=== PATIENT | male | born 1960 | race Caucasian/White ===

== ENCOUNTER 2025-02-13 09:27 | Outpatient (AMB) | payer OTHER, SELFPAY ==
--- NOTE | 2025-02-13 09:30 | A.OFFVIS_ITS ---
Vital Signs 02/13/25 09:35 Height 6 ft Weight 274 lb BMI 37.2 BP 108/60 Blood Pressure Location Lt brachial Position Sitting Pulse 63 Pulse Source Pulse Oximeter Pulse Oximetry (%) 95 Oxygen Delivery Method Room Air Intake Visit Reasons: Obstructive sleep apnea Allergies No Known Allergies Allergy (Verified 02/13/25 09:38) HPI HPI Obstructive sleep apnea: Details: Abdullahi is a pleasant 64 year old, former smoker, quit 15+ years ago, with underlying SEFERINO on CPAP, HTN, HLD, and DMII. He was referred by PCP for management of SEFERINO. He was diagnosed with severe sleep apnea 20 years ago and has been using a CPAP machine since then. The patient reports that his original CPAP machine was more effective than the current ResMed 10, which he has been using for four to five years. The patient has experienced significant weight loss of 43 pounds since October, attributed to the use of Zepbound. He reports persistent daytime tiredness despite using the CPAP machine, which suggests a possible need for a repeat sleep study due to the weight loss. The patient has a history of pulmonary nodules, which were identified after a hospitalization several years ago. The nodules were followed up with repeat CT scans by Dr. Weaver, and the patient was advised to continue monitoring them. The last CT scan was performed at [facility], and the patient has a history of smoking, having quit more than 15 years ago. The patient reports symptoms of allergic rhinitis, including persistent spring allergies managed with loratadine. He has no history of asthma and denies any significant respiratory symptoms such as wheezing or shortness of breath. 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 [facility] Social History (Updated 02/13/25 @ 09:38 by Lani Tariq [facility]) Patient Tobacco Use Status: Former Tobacco user Review of Systems Const Denies chills, Denies excessive sweating, Denies fever(s), Denies headache(s) and Denies night sweats Eyes Denies dry eyes, Denies irritation and Denies itchy eyes ENT Reports Normal hearing present, Denies headache(s), Denies nasal congestion, Denies nasal discharge, Denies post nasal drip and Denies sore throat Card Denies chest pain, Denies chest pain at rest, Denies chest pain with activity, Denies claudication, Denies leg edema, Denies dyspnea, Denies dyspnea on exertion, Denies orthopnea and Denies paroxysmal nocturnal dyspnea Resp Denies chest congestion, Denies cough, Denies excessive phlegm production, Denies pain on inspiration, Denies pain with cough, Denies dyspnea, Denies dyspnea on exertion, Denies stridor and Denies wheezing Musc Denies myalgias Neuro Reports Normal hearing present and Denies headache(s) Endo Denies excessive sweating Issac/Lymph Denies lymphadenopathy Aller/Immun Denies itchy eyes, Denies seasonal rhinorrhea and Denies wheezing Physical Exam Vital Signs: Last Vital Signs Pulse 63 02/13/25 09:35 BP 108/60 02/13/25 09:35 Pulse Ox 95 02/13/25 09:35 Oxygen Delivery Method Room Air 02/13/25 09:35 BMI result Body Mass Index 37.2 Const General: cooperative, healthy appearing, comfortable, no acute distress, well developed and alert Nutritional Appearance: obese Orientation/consciousness: patient oriented x3 Limitations: no limitations HEENT Head: Yes normal to inspection, Yes normocephalic and Yes atraumatic Ears: hearing grossly normal bilaterally and external ears normal Eyes General: appearance normal, both eyes and all related structures Eyelids: Yes eyelids normal Sclerae: sclerae normal EOM: EOMs intact bilaterally Neck Neck: Yes normal visual inspection and Yes no lymphadenopathy Lymphatic: no lymphadenopathy noted Chest Chest palpation & inspection: normal inspection of the chest Resp Effort & Inspection: normal respiratory effort, able to speak in complete sentences, no audible wheezes, no cough, no stridor, not tachypneic, no tripod positioning and no use of accessory muscles Auscultation: clear to auscultation bilaterally Cardio Jugular venous distension: no JVD Rate: regular rate Rhythm: regular rhythm Skin Other: warm, dry General skin exam: no rashes or lesions noted Neuro General: patient oriented x3 Cranial nerves: Yes Normal hearing present Cognition (Neuro): normal cognition Gait exam (Neuro): Normal gait present Extrem General: Yes normal to inspection, Yes capillary refill normal, Yes no clubbing, cyanosis or edema and Yes no pedal edema Psych Appearance: grossly normal and well kempt Speech and movement: Normal speech and movement present and Clear speech present Affect: normal affect Attitude: cooperative Thought process: Normal thought process present Thought content: Normal thought content present Insight: Good insight present (Psych) Judgement: Good judgement present (Psych) Assessment & Plan Assessment & Plan (1) Obstructive sleep apnea: Code(s): G47.33 - Obstructive sleep apnea (adult) (pediatric) Category: Medical (2) Morbid obesity: Code(s): E66.01 - Morbid (severe) obesity due to excess calories Category: Medical (3) Pulmonary nodule: Code(s): R91.1 - Solitary pulmonary nodule Category: Medical (4) Daytime somnolence: Code(s): R40.0 - Somnolence Category: Medical Plan We discussed scheduling a repeat sleep study to reassess the severity of the patient's obstructive sleep apnea, given the significant weight loss and persistent daytime tiredness. The sleep study is recommended to be conducted in a lab setting to accurately determine the necessary CPAP pressures. He is requesting this to be performed in the Fall, as he is hopeful he will continue to lose weight. Additionally, the patient will obtain a repeat CT scan to monitor the pulmonary nodules, ensuring stability and ruling out any changes in size or density. [facility] The patient is advised to continue using loratadine for allergic rhinitis and consider switching to a more potent antihistamine if symptoms persist. All questions were answered and patient is in agreement of plan. Follow-up appointments are planned after the completion of the sleep study and CT scan to review results and adjust management as necessary. Coding Level of Care Code New Pt Level 4 (29207) Diagnoses Obstructive sleep apnea G47.33 Morbid obesity E66.01 Pulmonary nodule R91.1 Daytime somnolence R40.0
[2025-02-13 09:35] VITALS: BP 108/60; PULSE 63; O2SAT 95; BMI 37.2
--- OUTSIDE RECORDS SUMMARY | 2025-02-13 10:05 | XMS_ITS | Clinical Summary ---
Author Organization [facility] Address [address] [place] [address] Care Team Providers Care Healthcare Business Analyst Name Role Phone Pcp, No Primary Care Provider [phone] Social History Tobacco Use Types Packs/Day Years Used Date Smoking Tobacco: Never Assessed Sex and Gender Information Value Date Recorded Sex Assigned at Not on file Legal Sex Male 12:52 PM EDT Gender Identity Not on file Sexual Orientation Not on file Plan of Treatment Health Maintenance Due Date Last Done Comments Depression: Screening Annual ly using PHQ-2/9 in Adults 18 yrs or above (or HM Modifier)([facility]) 1979 Hepatitis C Virus Infection in Adolescents and Adults: Screening (or Modifier) ([facility]) 1979 SDIL Screening Reminder: Laura coe for all adults ([facility]) 1979 Tobacco Smoking Cessation: i n Adults excluding Women: Behavioral and Pharmacotherapy Interventions ([facility]) 1979 Colorectal Cancer: FLEXIBLE SIGMOIDOSCOPY Screening every 5 yrs 2006 Colorectal Cancer: Fecal Immunochemical Test (FIT) Annually [facility] 2006 Colorectal Cancer: High-sens itivity gFOBT Screening Annually [facility] 2006 Colorectal Cancer: Stool Col oguard Screening every 3 yrs 2006 Colorectal Cancer:CT Colonog bayron Screening every 5 yrs 2006 Pneumococcal Vaccination Scr eening: Patients 50+ yrs of age ([facility]) (1 of 1 - PCV) 2011 Zoster/Shingles Vaccine Seri es Screening: Adults aged 18+ yrs (or HM Modifiers)([facility]) (1 of 2) 2011 COVID-19 Vaccine Screening: Initial Series and Booster Status ([facility]) (4 - 2024-25 season) 2024 06/06/2021, 11/11/2020, 10/21/2020 Flu Vaccination: Yearly for ages 18mos through 64 years (or Modifier)([facility]) 03/16/2025 05/09/2024, 07/02/2022, 07/02/2022, Additional history exists DTaP/Tdap/Td Vaccines ([facility]) (2 - Td or Tdap) 06/14/2025 06/14/2015 Colorectal Cancer Screening 45 -75 Yrs (or HM Modifier) 01/04/2034 Colorectal Cancer: COLONOSCO PY Screening every 10 yrs (or Modifier) 01/04/2034 01/05/2024, 01/05/2024 RSV Vaccines (1 - 1-dose 75+ series) 2036 [employer] Not on file Insurance [employer] Member Subscriber Plan / Payer (Ef fective 2021-Present) Name:Abdullahi Glez Member ID:[id number] Relation to Subscriber:Self Name:Abdullahi Glez Subscriber ID:[id number] Payer ID:Not on file Group ID:Not on file Type:Not on file Address: [facility] [id number] [place] [id number] Care Teams Healthcare Business Analyst Relationship Specialty Start Date End Date Pcp, Brooklynn PCP - General Family Medicine 09/10/21
--- OUTSIDE RECORDS SUMMARY | 2025-02-13 10:05 | XMS_ITS | Clinical Summary ---
Author Organization [address] Address [address] [place] [phone] Phone Care Team Providers Care Programmable Logic Controller Assembler Name Role Phone Donnie Yanez MD Primary Care Provider [phone] Allergies Active Allergy Reactions Criticality Noted Date Comments Sulfamethoxazole-Trimethoprim 2019 Medications aspirin 81 mg EC tablet Take 1 tablet (81 mg total) by mouth 1 (one) time each day. Active OneTouch Ultra Test test strip 1 each by Other route 1 (one) time each day. 07/24/20 23 Active chlorhexidine (PERIDEX) 0.12 % solution RINSE BY MOUTH WITH 15ML TWICE A DAY X1 WEEK. RINSE AND SPIT OUT AFTER USE. DO NOT SWALLOW 05/18/20 24 Active cholecalciferol (VITAMIN D-3) 25 mcg (1,000 unit) tablet Take 1 tablet (1,000 Units total) by mouth 1 (one) time each day. Active FreeStyle Barbra 2 [place] misc Inject into the skin 3 (three) times a day. USE TO CHECK BLOOD SUGAR THREE TIMES DAILY 07/12/20 23 Active furosemide (LASIX) 40 mg tablet Take 40 mg by mouth once daily. 90 each 3 09/18/19 25 Active tamsulosin (FLOMAX) 0.4 mg 24 hr capsule TAKE 1 CAPSULE BY MOUTH EVERY DAY AT THE SAME TIME EACH DAY 30 MINUTES AFTER THE SAME MEAL 90 capsule 1 11/15/19 25 Active FreeStyle Barbra 2 Sensor kit USE TO CHECK BLOOD GLUCOSE LEVELS 3 TIMES DAILY 2 each 8 12/02/19 Active atorvastatin (LIPITOR) 20 mg tablet TAKE 1 TABLET BY MOUTH EVERY DAY 90 tablet 12/02/19 Active KLOR-CON M10 10 mEq CR tablet TAKE 1 TABLET BY MOUTH 1 TIME EACH DAY. 90 tablet 12/02/19 Active buPROPion SR (WELLBUTRIN SR) 150 mg 12 hr tablet TAKE 1 TABLET BY MOUTH EVERY DAY 90 tablet 12/02/19 25 Active allopurinoL (ZYLOPRIM) 300 mg tablet TAKE 1 TABLET BY MOUTH EVERY DAY 90 tablet 12/02/19 25 Active losartan (COZAAR) 50 mg tablet TAKE 1 TABLET BY MOUTH EVERY DAY IN ADDITION TO 25MG FOR TOTAL DOSE OF 75MG DAILY 90 tablet 12/02/19 25 Active losartan (COZAAR) 25 mg tablet TAKE 1 TABLET BY MOUTH DAILY. IN ADDITION TO THE 50 MG FOR A TOTAL OF 75 MG DAILY 90 tablet 12/02/19 25 Active colchicine (COLCRYS) 0.6 mg tablet TAKE 1 TABLET BY MOUTH EVERY DAY 90 tablet 12/13/19 Active metoprolol tartrate (LOPRESSOR) 50 mg tablet Take 1 tablet (50 mg total) by mouth 2 (two) times a day. 180 each 12/20/19 25 026 Active tirzepatide, weight loss, 7.5 mg/0.5 mL solutionIndicat ions:obstructiv e sleep apnea syndrome,type 2 diabetes mellitus,weight loss management for obese patient (bmi >= 30) Inject 7.5 mg under the skin every 7 (seven) days. 6 mL 02/08/20 25 Active tirzepatide, weight loss, (Zepbound) 5 mg/0.5 mL solutionIndicat ions:Severe obesity (BMI 35.0-39.9) with comorbidity (CMS/HCC V24, CMS/FORMERLY [facility] V28),Type 2 diabetes mellitus without complication, without long-term current use of insulin (CMS/HCC V24, [facility] V28) Inject 5 mg under the skin every 7 (seven) days. 6 mL 3 12/20/19 25 025 Discontinued Active Problems Problem Noted Date Diagnosed Date Depression 07/14/2021 Prostatism 07/14/2021 CAD (coronary artery disease) 05/01/2020 Assessment & Plan (09/18/2024 10:47 AM EST): No CP. No anginal symptoms. Orders: Basic metabolic panel; Future B-type natriuretic peptide; Future Hepatic function panel; Future dulaglutide (TRULICITY) 0.75 mg/0.5 mL pen injector injection; Inject 0.5 mL (0.75 mg total) under the skin 1 (one) time per week. DM (diabetes mellitus), type 2 (CMS/[facility] V24, CMS /HCC V28) 05/01/2020 Assessment & Plan (09/21/2024 5:07 PM EST): Diabetes control recently worsened. Recent hemoglobin A1c of 6.5%. Will initiate dulaglutide which may be also helpful for weight loss. While other GLP-1's have been shown to be more beneficial, when trying to prescribe alternatives, there was large predicted co-pays, so we have the Trulicity. Orders: Basic metabolic panel; Future B-type natriuretic peptide; Future Hepatic function panel; Future dulaglutide (TRULICITY) 0.75 mg/0.5 mL pen injector injection; Inject 0.5 mL (0.75 mg total) under the skin 1 (one) time per week. Gout 05/01/2020 Hyperlipidemia 05/01/2020 Hypertension 05/01/2020 Assessment & Plan (09/18/2024 10:47 AM EST): BP well controlled. I am adjusting his lasix due to peripheral edema, otherwise no change. Orders: Basic metabolic panel; Future B-type natriuretic peptide; Future Hepatic function panel; Future dulaglutide (TRULICITY) 0.75 mg/0.5 mL pen injector injection; Inject 0.5 mL (0.75 mg total) under the skin 1 (one) time per week. SEFERINO (obstructive sleep apnea) 05/01/2020 Overview (07/03/2024): CPAP Assessment & Plan (09/18/2024 10:47 AM EST): Continues with CPAP. Orders: Basic metabolic panel; Future B-type natriuretic peptide; Future Hepatic function panel; Future dulaglutide (TRULICITY) 0.75 mg/0.5 mL pen injector injection; Inject 0.5 mL (0.75 mg total) under the skin 1 (one) time per week. Adenomatous polyp of ascending colon 01/25/2018 Severe obesity (BMI 35.0-39. 9) with comorbidity ([facility] V24, [facility] V28) 01/25/2018 Encounters Date Type Department Care Team Description 12/25/2024 Telephone Adult Medicine [address] [phone] Donnie Yanez MD Appointment 12/19/2024 9:30 AM EDT Office Visit Adult Medicine [address] [phone] Casimiro Song PA SEFERINO (obstructive sleep apnea) (Primary Dx); Leg swelling; Severe obesity (BMI 35.0-39.9) with comorbidity ([facility] V24, [facility] V28); Type 2 diabetes mellitus without complication, without long-term current use of insulin ([facility] V24, [facility] V28) from Last 3 Months Immunizations Name Administration Dates Next Due Influenza Quadravalent, MDCK , 0.5ml, preservative free (Flucelvax) 6mo and older 07/02/2022,07/14/2021 Influenza trivalent, 0.5mL (Fluad) 65yo and olde r 07/28/2023 Influenza trivalent, 0.5mL, preservative free (Fluarix; FluLaval; Fluzone) ages 6mo and older (Afluria) 3 years and older 05/09/2024,07/12/2019 Moderna (age 6mo & older) Bi valent, COVID-19, 0.5 mL or 0.25 mL dosage 05/25/2022 SARS-COV-2 (COVID-19) Vaccine, Unspecified 07/28 Tdap Tetanus diptheria acell ular pertussis (Boostrix; Adacel) 7yo and older 06/14/2015 Surgical History Surgery Date Site/Laterality Comments HERNIA REPAIR 07/04/2018 PROCEDURE: UT REPAIR FIRST ABDOMINAL WALL HERNIA; COMMENT: multiple incarcerated with mesh COLONOSCOPY 12/10/2015 PROCEDURE: HISTORICAL COLONOSCOPY OTHER SURGICAL HISTORY Right PROCEDURE: UT COLECTOMY PARTIAL W/ANASTOMOSIS; COMMENT: Hemicolectomy- Adenoma & adhesion KNEE SURGERY PROCEDURE: HISTORICAL KNEE SURGERY SHOULDER SURGERY Bilateral PROCEDURE: HISTORICAL SHOULDER SURGERY; COMMENT: Boby APPENDECTOMY PROCEDURE: HISTORICAL APPENDECTOMY ELBOW SURGERY PROCEDURE: HISTORICAL ELBOW SURGERY OTHER SURGICAL HISTORY Right PROCEDURE: HISTORY OTHER; COMMENT: thumb Arthroplasty COLONOSCOPY 11/07/2012 PROCEDURE: HISTORICAL COLONOSCOPY; COMMENT: No report OTHER SURGICAL HISTORY PROCEDURE: HISTORICAL MELANOMA Medical History Medical History Date Comments History of basal cell carcinoma DX:History of basal cell carcinoma; COMMENT: BCC 12/30 neck Hypertension 05/01/2020 DX:Hypertension Gout 05/01/2020 DX:Gout SEFERINO (obstructive sleep apnea) 05/01/2020 DX :SEFERINO (obstructive sleep apnea); COMMENT: CPAP Severe obesity (BMI 35.0-39. 9) with comorbidity (CMS/HCC V24, CMS/HCC V28) 01/25/2018 DX:Severe obesi ty (BMI 35.0- 39.9) with comorbidity ([facility]) CAD (coronary artery disease) 05/01/2020 DX :CAD (coronary artery disease) Hyperlipidemia 05/01/2020 DX:Hyperlipidemi a Prediabetes 05/01/2020 DX:Prediabetes Adenomatous polyp of ascending colon 01/25/2018 DX:Adenomatous polyp of ascending colon DM (diabetes mellitus), type 2 (CMS/HCC V24, CMS/HCC V28) 05/01/2020 DX:DM (diabetes mellitus), t ype 2 (HCC) Family History Medical History Relation Name Comments Diabetes Brother 1 Hypertension Brother 2 Lung cancer Father black lung co al worker, CAD age 40 Dementia Mother Drug abuse Son drug OD Relation Name Status Comments Brother 1 Brother 2 Father Mother Son Social History Tobacco Use Types Packs/Day Years Used Date Smoking Tobacco: Former Smokeless Tobacco: Never Tobacco Cessation:Counseling Given: Not Answered Alcohol Use Standard Drinks/Week Comments Yes 0 (1 standard drink = 0.6 oz pur e alcohol) Sex and Gender Information Value Date Recorded Sex Assigned at Not on file Legal Sex Male 9:48 PM EST Gender Identity Not on file Sexual Orientation Not on file Obstetrics History Last Filed Vital Signs Vital Sign Reading Time Taken Comments Blood Pressure 112/66 12/19/2024 9:26 AM EDT Pulse 66 12/19/2024 9:26 AM EDT Temperature 36.6 C (97.8 F) 12/19/2024 9:26 AM EDT Respiratory Rate 14 12/19/2024 9:26 AM EDT Oxygen Saturation 98% 12/19/2024 9:26 AM EDT Inhaled Oxygen Concentration - - Weight 130 kg (286 lb) 12/19/2024 9:26 AM EDT Height 177.8 cm (5' 10 ) 12/19/2024 9:26 AM EDT Body Mass Index 41.04 12/19/2024 9:26 AM EDT Plan of Treatment Health Maintenance Due Date Last Done Comments Pneumococcal Vaccine: 50+ Years (1 of 2 - PCV) 1980 Pneumococcal Vaccine: Pediatrics (0 to 5 Years) and At-Risk Patients (6 to 64 Years) (1 of 2 - PCV) 1980 Zoster Vaccines (1 of 2) 1980 Depression Screening 09/16/2019 HIV Screening 09/16/2019 Social Influencers of Health Screening 09/16/2019 RSV Immunization Adult Patients (1 - Risk 60-74 years 1-dose series) 2021 COVID-19 Vaccine (2023- season) 2024 07/28/2023, 05/25/2022, 06/06/2021, Additional history exists Diabetes: Annual Urine Albumin-Creatinine Ratio (uACR) 12/02/2024 12/03/2023 Influenza Vaccine (#1) 2025 , 07/28/2023, 07/02/2022, Additional history exists DTaP,Tdap,and Td Vaccines (2 - Td or Tdap) 06/14/2025 06/14/2015 Diabetes: Blood Sugar Control Test (HGBA1C) 06/21/2025 12/19/2024, 08/28/2024, 12/03/2023 Diabetes: Annual Foot Exam 12/19/2025 12/19/2024 Diabetes: Annual GFR (Glomerular Filtration Rate) 12/19/2025 12/19/2024, 09/18/2024, 08/28/2024, Additional history exists Diabetes: Annual Retina Eye Exam 12/19/2025 12/19/2024, 06/08/2024 Hypertension/CHF/CAD Annual BMP Blood Test 12/19/2025 12/19/2024, 09/18/2024, 08/28/2024, Additional history exists Colorectal Cancer Screening: Colonoscopy 01/04/2029 01/05/2024 Cholesterol Screening (Lipid Panel) 12/19/2029 12/19/2024, 08/28/2024, 12/14/2023, Additional history exists Hepatitis C Screening Completed 10/29/2022 HIB Vaccines Aged Out No longer eligi ble based on patient's age to complete this topic HPV Vaccines Aged Out No longer eligi ble based on patient's age to complete this topic Hepatitis A Vaccines Aged Out No long er eligible based on patient's age to complete this topic Hepatitis B Vaccines Aged Out No long er eligible based on patient's age to complete this topic IPV Vaccines Aged Out No longer eligi ble based on patient's age to complete this topic MMR Vaccines Aged Out No longer eligi ble based on patient's age to complete this topic Meningococcal ACWY Vaccine Aged Out N o longer eligible based on patient's age to complete this topic Meningococcal B Vaccine Aged Out No l onger eligible based on patient's age to complete this topic RSV Immunization Patients Under 20 months Aged Out No longer eligible based on patient's age to complete this topic Varicella Vaccines Aged Out No longer eligible based on patient's age to complete this topic Procedures Procedure Name Priority Date/Time Associated Diagnosis Comments VITAMIN B12 Routine 12/19/2024 11:21 AM EDT Elevated MCV FOLATE Routine 12/19/2024 11:21 AM EDT Elevated MCV IRON AND TIBC Routine 12/19/2024 11:21 AM EDT Elevated MCV FERRITIN Routine 12/19/2024 11:21 AM EDT Elevated MCV B-TYPE NATRIURETIC PEPTIDE Routine 12/19/2024 11:21 AM EDT SEFERINO (obstructive sleep apnea) COMPREHENSIVE METABOLIC PANEL Routine 12/19/2024 11:21 AM EDT SEFERINO (obstructive sleep apnea) COMPLETE BLOOD COUNT Routine 12/19/2024 11:21 AM EDT SEFERINO (obstructive sleep apnea) Leg swelling Severe obesity (BMI 35.0-39.9) with comorbidity ([facility] V24, [facility] V28) Type 2 diabetes mellitus without complication, without long-term current use of insulin ([facility] V24, [facility] V28) HEMOGLOBIN A1C Routine 12/19/2024 11:21 AM EDT SEFERINO (obstructive sleep apnea) Leg swelling Severe obesity (BMI 35.0-39.9) with comorbidity ([facility] V24, [facility] V28) Type 2 diabetes mellitus without complication, without long-term current use of insulin ([facility] V24, [facility] V28) LIPID PANEL WITH REFLEX TO DIRECT LDL Routine 12/19/2024 11:21 AM EDT SEFERINO (obstructive sleep apnea) Leg swelling Severe obesity (BMI 35.0-39.9) with comorbidity ([facility] V24, [facility] V28) Type 2 diabetes mellitus without complication, without long-term current use of insulin ([facility] V24, [facility] V28) EXTERNAL DIABETIC RETINA EYE EXAM Routine 12/19/2024 10:10 AM EDT COLONOSCOPY Routine 01/05/2024 URINE ALBUMIN CREATININE RATIO Routine 12/03/2023 HEPATITIS C SCREENING Routine 10/29/2022 from Last 3 Months or Most Recently Relevant to Health Maintenance Results * (ABNORMAL) Lipid panel with reflex to direct LDL (12/19/2024 11:21 AM EDT) Cholesterol 109 0 - 200 mg/dL LAB CHEMISTRY METHOD 12/19/2024 1:19 PM EDT [facility] Triglycerides 219(H) 0 - 150 mg/dL LAB CHEMISTRY METHOD 12/19/2024 1:19 PM EDT [facility] HDL 48 >=40 mg/dL LAB CHEMISTRY METHOD 12/19/2024 1:19 PM EDT [facility] LDL Calculated 17 0 - 100 mg/dL LAB CHEMISTRY METHOD 12/19/2024 1:19 PM EDT [facility] VLDL Cholesterol Keenan 43.8 mg/dL LAB CHEMISTRY METHOD 12/19/2024 1:19 PM EDT [facility] Non HDL Chol. (LDL+VLDL) 61 <145 mg/dL LAB CHEMISTRY METHOD 12/19/2024 1:19 PM EDT [facility] Chol/HDL Ratio 2.3 0.0 - 4.4 LAB CHEMISTRY METHOD 12/19/2024 1:19 PM EDT [facility] Blood Venous blood specimen / Unknown Venipuncture / Unknown 12/19/2024 11:21 AM EDT 12/19/2024 11:21 AM EDT Casimiro SWEET LAB BLOOD ORDERABLES Fin al Result Performing Organization Address [facility] Co de Phone Number [facility] [address] [place] [address], [place] [phone] * Iron and TIBC (12/19/2024 11:21 AM EDT) Iron 89 50 - 160 mcg/dL LAB CHEMISTRY METHOD 12/20/2024 2:17 AM EDT [facility] TIBC 314 250 - 450 mcg/dL LAB CHEMISTRY METHOD 12/20/2024 2:17 AM EDT [facility] Iron Saturation 28 20 - 50 % LAB CHEMISTRY METHOD 12/20/2024 2:17 AM EDT [facility] Blood Venous blood specimen / Unknown Venipuncture / Unknown 12/19/2024 11:21 AM EDT 12/19/2024 11:21 AM EDT us Casimiro SWEET LAB BLOOD ORDERABLES Fin al Result Performing Organization Address City/[facility]/ZIP Co de Phone Number [facility] [address] [place] [address], [place] [phone] * (ABNORMAL) Complete blood count (12/19/2024 11:21 AM EDT) [facility] WBC 7.2 4.8 - 10.8 K/mcL LAB HEM[facility]24 [facility] RBC 4.00(L) 4.50 - 5.50 M/mcL LAB HEM[facility]OLOGY METHOD 12/19[facility]2024 1[facility] Hemoglobin 13.6 13.5 - 17.5 g/dL LAB HEMETOLOGY METHOD 12/19/2024 1:39 PM [facility] Hematocrit 39.9(L) 42.0 - 54.0 % LAB HEMETOLOGY METHOD 12/19/2024 1:39 PM [facility] MCV 100.0(H) 79.0 - 98.0 FL LAB HEMETOLOGY METHOD 12/19/2024 1:39 PM [facility] MCH 34.1(H) 27.0 - 32.0 pcg LAB HEMETOLOGY METHOD 12/19/2024 1:39 PM [facility] MCHC 34.1 32.0 - 37.0 g/dL LAB HEMETOLOGY METHOD 12/19/2024 1:39 PM [facility] RDW 12.6 11.0 - 15.0 % LAB HEMETOLOGY METHOD 12/19/2024 1:39 PM [facility] Platelets 277 130 - 400 K/mcL LAB HEMETOLOGY METHOD 12/19/2024 1:39 PM [facility] MPV 10.3 7.0 - 11.0 FL LAB HEMETOLOGY METHOD 12/19/2024 1:39 [facility] NRBC 0.0 <1.0 % LAB HEMETOLOGY METHOD 12/19/2024 1:39 PM EDT [facility] NRBC Absolute 0.00 <0.10 K/mcL LAB HEMETOLOGY METHOD 12/19/2024 1:39 PM EDT [facility] Blood Venous blood specimen / Unknown Venipuncture / Unknown 12/19/2024 11:21 AM EDT 12/19/2024 11:21 AM EDT Casimiro SWEET LAB BLOOD ORDERABLES Fin al Result Performing Organization Address [facility]/ZIP Co de Phone Number [facility] [address] [place] [address], * B-type natriuretic peptide (12/19/2024 11:21 AM EDT) BNP 14 <=100 pcg/mL LAB CHEMISTRY METHOD 12/19/2024 1:59 PM EDT [facility] Blood Venous blood specimen / Unknown Venipuncture / Unknown 12/19/2024 11:21 AM EDT 12/19/2024 11:21 AM EDT Casimiro SWEET LAB BLOOD ORDERABLES Fin al Result Performing Organization Address City/[facility]/ZIP Co de Phone Number [facility] [address] [place] [address], * Hemoglobin A1c (12/19/2024 11:21 AM EDT) Hemoglobin A1C 5.5 <6.5 % LAB CHEMISTRY METHOD 12/19/2024 3:09 PM EDT [facility] Mean Bld Glu Estim. 111 mg/dL LAB CHEMISTRY METHOD 12/19/2024 3:09 PM EDT [facility] Blood Venous blood specimen / Unknown Venipuncture / Unknown 12/19/2024 11:21 AM EDT 12/19/2024 11:21 AM EDT Casimiro SWEET LAB BLOOD ORDERABLES Fin al Result Performing Organization Address [facility] Co de Phone Number [facility] [address] [place] [address], [place] [phone] * Folate (12/19/2024 11:21 AM EDT) [facility] Folate 7.4 2.8 - 17.0 ng/ml LAB CHEMISTRY METHOD 12/20/2024 2:43 AM EDT [facility] Blood Venous blood specimen / Unknown Venipuncture / Unknown 12/19/2024 11:21 AM EDT 12/19/2024 11:21 AM EDT Casimiro SWEET LAB BLOOD ORDERABLES Fin al Result Performing Organization Address [facility] de Phone Number [facility] [address] [place] [address], [place] [phone] * Ferritin (12/19/2024 11:21 AM EDT) [facility] Ferritin 370 26 - 388 ng/mL LAB CHEMISTRY METHOD 12/20/2024 2:43 AM EDT [facility] Blood Venous blood specimen / Unknown Venipuncture / Unknown 12/19/2024 11:21 AM EDT 12/19/2024 11:21 AM EDT Casimiro SWEET LAB BLOOD ORDERABLES Fin al Result Performing Organization Address [facility] Co de Phone Number [facility] [address] [place] [address], [place] [phone] * (ABNORMAL) Vitamin B12 (12/19/2024 11:21 AM EDT) [facility] Vitamin B-12 1,729(H) 250 - 900 pcg/mL LAB CHEMISTRY METHOD 12/20/2024 2:43 AM EDT [facility] Blood Venous blood specimen / Unknown Venipuncture / Unknown 12/19/2024 11:21 AM EDT 12/19/2024 11:21 AM EDT us Casimiro SWEET LAB BLOOD ORDERABLES Fin al Result [facility] [address] [place] [address], [place] [phone] * (ABNORMAL) Comprehensive metabolic panel (12/19/2024 11:21 AM EDT) Sodium 136 133 - 145 mmol/L LAB CHEMISTRY METHOD 12/19/2024 1:19 PM [facility] Potassium 3.9 3.5 - 5.5 mmol/L LAB CHEMISTRY METHOD 12/19/2024 1:19 PM [facility] Chloride 103 96 - 110 mmol/L LAB CHEMISTRY METHOD 12/19/2024 1:19 PM [facility] CO2 24 21 - 32 mmol/L LAB CHEMISTRY METHOD 12/19/2024 1:19 PM [facility] Anion Gap 9 3 - 11 LAB CHEMISTRY METHOD 12/19/2024 1:19 PM [facility] Glucose 101(H) 70 - 100 mg/dL LAB CHEMISTRY METHOD 12/19/2024 1:19 PM [facility] BUN 22 5 - 25 mg/dL LAB CHEMISTRY METHOD 12/19/2024 1:19 PM [facility] Creatinine 1.11 0.70 - 1.30 mg/dL LAB CHEMISTRY METHOD 12/19/2024 1:19 PM [facility] eGFR 75 >=60 mL/min/1. 73m2 LAB CHEMISTRY METHOD 12/19/2024 1:19 PM [facility] Comment:Calculation based on the Chronic Kidney Disease Epidemiology Collaboration (CKD-EPI) equation refit without adjustment for race. BUN/Creatinine Ratio 19.8 LAB CHEMISTRY METHOD 12/19/2024 1:19 PM [facility] Calcium 8.8 8.5 - 10.5 mg/dL LAB CHEMISTRY METHOD 12/19/2024 1:19 PM [facility] AST (SGOT) 24 10 - 42 unit/L LAB CHEMISTRY METHOD 12/19/2024 1:19 PM [facility] ALT (SGPT) 28 10 - 60 unit/L LAB CHEMISTRY METHOD 12/19/2024 1:19 PM [facility] Alkaline Phosphatase 102 42 - 121 unit/L LAB CHEMISTRY METHOD 12/19/2024 1:19 PM [facility] Total Protein 7.1 6.0 - 8.0 g/dL LAB CHEMISTRY METHOD 12/19/2024 1:19 PM [facility] Albumin 3.8 3.2 - 5.0 g/dL LAB CHEMISTRY METHOD 12/19/2024 1:19 PM [facility] Total Bilirubin 0.5 0.0 - 1.4 mg/dL LAB CHEMISTRY METHOD 12/19/2024 1:19 PM [facility] Blood Venous blood specimen / Unknown Venipuncture / Unknown 12/19/2024 11:21 AM EDT 12/19/2024 11:21 AM EDT us Casimiro SWEET LAB BLOOD ORDERABLES Fin al Result [facility] [address] [place] [address], * External Diabetic Retina Eye Exam Report (12/19/2024 10:10 AM EDT) Anatomical Region Laterality Modality Ultrasound us Casimiro SWEET IMG US PROCEDURES Final Result * Hm Colonoscopy (01/05/2024) [facility] Colonoscopy No interpretation , abstracted Anatomical Region Laterality Modality Other Historical Provider HEALTH MAINTENANCE Final Result * Urine Albumin Creatinine Ratio (12/03/2023) Pathologist [facility] Urine Albumin Creatinine Ratio Abstracted [facility] Provider HEALTH MAINTENANCE Final Result * Hepatitis C Screening (10/29/2022) Pathologist [facility] Hepatitis C Screening Abstracted Historical Provider HEALTH MAINTENANCE Final Result from Last 3 Months or Most Recently Relevant to Health Maintenance Insurance [employer] Care Teams Programmable Logic Controller Assembler Relationship Specialty Start Date End Date Donnie Yanez MD [address] [place] [id number] PCP - General Internal Medicine 07/14/21
== END 2025-02-13 10:18 | disposition home or self-care (01) ==
LOC: HO.HPSW 09:28
PROVIDERS: PCP Internal Medicine; Visit Provider Nurse Practitioner Family
DX: G47.33 Obstructive sleep apnea (adult) (pediatric) (principal); E66.01 Morbid (severe) obesity due to excess calories; R91.1 Solitary pulmonary nodule; R40.0 Somnolence
CPT/HCPCS: 99204

== ENCOUNTER → 2025-07-23 16:17 | Outpatient (REF) | payer OTHER, SELFPAY ==
--- OUTSIDE RECORDS SUMMARY | 2025-07-24 01:47 | XMS_ITS ---
Author Name [facility] Organization Unknown Care Team Organization Name Specialty Phone Email Start Date End Da te [facility] Casimiro Song Primary Care 10/21/202204/03 [facility] Renata Primary Care 06/23/2022 04/03/2024
== END ==
LOC: HO.SL 16:17
PROVIDERS: PCP Internal Medicine; Visit Provider Nurse Practitioner Family
DX: G47.33 Obstructive sleep apnea (adult) (pediatric) (principal); R40.0 Somnolence
CPT/HCPCS: 95806

== ENCOUNTER → 2025-07-24 16:24 | Outpatient (BNV) | payer OTHER, SELFPAY | PROVIDERS: PCP Internal Medicine; Visit Provider Psychiatry & Neurology Neurology | DX: G47.33 Obstructive sleep apnea (adult) (pediatric) (principal) | CPT/HCPCS: 95806 ==

== ENCOUNTER 2025-07-31 09:37 | Outpatient (AMB) | payer OTHER, SELFPAY ==
--- NOTE | 2025-07-31 09:39 | MHC.OFFVIS ---
Vital Signs 07/31/25 09:40 Height 6 ft Weight 269 lb 6 oz BMI 36.5 BP 120/66 Blood Pressure Location Rt brachial Position Sitting Pulse 60 Pulse Source Pulse Oximeter Pulse Oximetry (%) 96 Oxygen Delivery Method Room Air Intake Visit Reasons: SEFERINO/CT & Sleep Study Follow Up Allergies No Known Allergies Allergy (Verified 07/31/25 09:42) HPI Comments Details: Abdullahi is a pleasant 65 year old, former smoker, quit 15+ years ago, with underlying SEFERINO on CPAP, HTN, HLD, and DMII. He was initially referred by PCP for management of SFEERINO. He was diagnosed with severe sleep apnea 20 years ago and has been using a CPAP machine since. The patient reports that his original CPAP machine was more effective than the current ResMed 10, which he has been using for four to five years. The patient has experienced significant weight loss of 56 pounds since October, attributed to the use of Zepbound and continues to use. At the last visit, he reported persistent daytime tiredness despite using the CPAP machine, and was sent for updated testing. Recent HST continued to demonstrate moderate obstructive sleep apnea with an apnea-hypopnea index of 21 events per hour, which is an improvement from a prior diagnosis of severe sleep apnea. During the study, his oxygen was below 88% for about 20 minutes. He reports symptoms of daytime tiredness, morning headaches, and frequent awakenings at night if he does not use his CPAP machine. He currently uses a ResMed 10 machine with a full-face mask, which he finds comfortable, though notes occasional leaks depending on his sleeping position. He is amenable to getting an updated machine. There has been difficulty in arranging a follow-up CT scan to monitor reported pulmonary nodules, requiring significant effort from his to coordinate with the insurance company and obtain prior records. A CD with images from [facility] was dropped off but has not been uploaded for review. The only prior imaging available from [facility] was a CT of the abdomen from 2018 for suspected kidney stones, which showed clear lower lung lobes. The patient has a history of smoking in his youth and significant occupational exposures, including shree, bridge construction demolition, and silica from sandblasting, which raises his concern for lung cancer. Pulmonology History - Obstructive sleep apnea: Previously diagnosed as severe, now diagnosed as moderate with an AHI of 21 based on a recent sleep study. - CPAP use: Currently uses a ResMed 10 machine with a full-face mask. - Sleep-related hypoxemia: Oxygen saturation dropped below 88% for approximately 20 minutes during the recent sleep study. - Abnormal chest imaging: History of an abnormal finding on a prior CT scan, with records pending upload and review. - CT abdomen (2018): Showed clear lower lung lobes incidentally. - Tobacco use: History of smoking when younger. - Occupational exposures: Reports exposure to potential asbestos, shree materials, silica from sandblasting, and demolition debris. [facility] Social History Patient Tobacco Use Status: Former Tobacco user Review of Systems Const Denies chills, Denies excessive sweating, Denies fever(s), Denies headache(s) and Denies night sweats Eyes Denies dry eyes, Denies irritation and Denies itchy eyes ENT Reports Normal hearing present, Denies headache(s), Denies nasal congestion, Denies nasal discharge, Denies post nasal drip and Denies sore throat Card Denies chest pain, Denies chest pain at rest, Denies chest pain with activity, Denies claudication, Denies leg edema, Denies dyspnea, Denies dyspnea on exertion, Denies orthopnea and Denies paroxysmal nocturnal dyspnea Resp Denies chest congestion, Denies cough, Denies excessive phlegm production, Denies pain on inspiration, Denies pain with cough, Denies dyspnea, Denies dyspnea on exertion, Denies stridor and Denies wheezing Musc Denies myalgias Neuro Reports Normal hearing present and Denies headache(s) Endo Denies excessive sweating Issac/Lymph Denies lymphadenopathy Aller/Immun Denies itchy eyes and Denies wheezing Physical Exam Vital Signs: Last Vital Signs Pulse 60 07/31/25 09:40 BP 120/66 07/31/25 09:40 Pulse Ox 96 07/31/25 09:40 Oxygen Delivery Method Room Air 07/31/25 09:40 BMI result Body Mass Index 36.5 Const General: cooperative, healthy appearing, comfortable, no acute distress, well developed and alert Nutritional Appearance: obese Orientation/consciousness: patient oriented x3 Limitations: no limitations HEENT Head: Yes normal to inspection, Yes normocephalic and Yes atraumatic Ears: hearing grossly normal bilaterally and external ears normal Eyes General: appearance normal, both eyes and all related structures Eyelids: Yes eyelids normal Sclerae: sclerae normal EOM: EOMs intact bilaterally Neck Neck: Yes normal visual inspection and Yes no lymphadenopathy Lymphatic: no lymphadenopathy noted Chest Chest palpation & inspection: normal inspection of the chest Resp Effort & Inspection: normal respiratory effort, able to speak in complete sentences, no audible wheezes, no cough, no stridor, not tachypneic, no tripod positioning and no use of accessory muscles Auscultation: clear to auscultation bilaterally Cardio Jugular venous distension: no JVD Rate: regular rate Rhythm: regular rhythm Skin Other: warm, dry General skin exam: no rashes or lesions noted Neuro General: patient oriented x3 Cranial nerves: Yes Normal hearing present Cognition (Neuro): normal cognition Gait exam (Neuro): Normal gait present Extrem General: Yes normal to inspection, Yes capillary refill normal, Yes no clubbing, cyanosis or edema and Yes no pedal edema Psych Appearance: grossly normal and well kempt Speech and movement: Normal speech and movement present and Clear speech present Affect: normal affect Attitude: cooperative Thought process: Normal thought process present Thought content: Normal thought content present Insight: Good insight present (Psych) Judgement: Good judgement present (Psych) Assessment & Plan Assessment & Plan (1) Obstructive sleep apnea: Code(s): G47.33 - Obstructive sleep apnea (adult) (pediatric) Category: Medical (2) Morbid obesity: Code(s): E66.01 - Morbid (severe) obesity due to excess calories Category: Medical (3) Pulmonary nodule: Code(s): R91.1 - Solitary pulmonary nodule Category: Medical (4) Exposure to silica: Code(s): Z77.29 - Contact with and (suspected) exposure to other hazardous substances Category: Medical (5) Asbestos exposure: Code(s): Z77.090 - Contact with and (suspected) exposure to asbestos Category: Medical Plan The patient's recent sleep study confirmed moderate obstructive sleep apnea with an AHI of 21 and mild nocturnal hypoxemia. He will continue with CPAP therapy, and will send updated order for APAP mode with pressures [id number] to be sent to [facility]. An at-home overnight oximetry test will be ordered to ensure the CPAP resolves his low oxygen levels. The patient expressed interest in a travel CPAP, and a script will be sent to [facility] to discuss, though he was counseled it is typically an [id number] expense. Follow-up is scheduled in three months to review CPAP compliance data and oximetry results. A chest X-ray will be ordered for baseline imaging and reassurance, which the patient can have done at [facility]. Once prior imaging is reviewed, will submit for authorization for a new CT scan, noting the history of smoking, family history of lung cancer in father per records and significant occupational exposures to justify medical necessity. All questions were answered and patient is in agreement of plan. Patient Instructions - We will send an order to [facility] for you to get an updated CPAP machine. - You will be mailed a device for an at-home overnight oxygen test. Please wear this with your CPAP machine as instructed and mail it back. - We are giving you a paper order for a chest X-ray. You can go to [facility] for this as a walk-in, but it is a good idea to call their radiology department for their hours first. - We will also add a request for you to discuss a travel CPAP with [facility]. Be aware that this is usually not covered by insurance and may be an [id number] cost. - Please schedule a follow-up appointment in three months to review your CPAP records and other results. Orders: Orders XR chest 2V 07/31/25 R91.1 - Solitary pulmonary nodule Coding Level of Care Code Est Pt Level 4 (52656) Diagnoses Obstructive sleep apnea G47.33 Morbid obesity E66.01 Pulmonary nodule R91.1 Exposure to silica Z77.29 Asbestos exposure Z77.090
[2025-07-31 09:40] VITALS: BP 120/66; PULSE 60; O2SAT 96; BMI 36.5
--- OUTSIDE RECORDS SUMMARY | 2025-07-31 11:25 | XMS_ITS | Clinical Summary ---
Author Organization [address] Address [address] [place] [id number] Phone Care Team Providers Care Director [employer] Name Role Phone Donnie Yanez MD Primary Care Provider [phone] Allergies Active Allergy Reactions Criticality Noted Date Comments Sulfamethoxazole-Trimethoprim 2019 Medications aspirin 81 mg EC tablet Take 1 tablet (81 mg total) by mouth 1 (one) time each day. OTC Active cholecalciferol (VITAMIN D-3) 25 mcg (1,000 unit) tablet Take 1 tablet (1,000 Units total) by mouth 1 (one) time each day. OTC Active FreeStyle Barbra 2 [place] misc Inject into the skin 3 (three) times a day. USE TO CHECK BLOOD SUGAR THREE TIMES DAILY Active tamsulosin (FLOMAX) 0.4 mg 24 hr capsule TAKE 1 CAPSULE BY MOUTH EVERY DAY AT THE SAME TIME EACH DAY 30 MINUTES AFTER THE SAME MEAL 90 capsule 1 11/15/19 25 Active KLOR-CON M10 10 mEq CR tablet TAKE 1 TABLET BY MOUTH 1 TIME EACH DAY. 90 tablet 1 12/02/19 25 Active metoprolol tartrate (LOPRESSOR) 50 mg tablet Take 1 tablet (50 mg total) by mouth 2 (two) times a day. 180 each 3 12/20/19 25 026 Active blood-glucose sensor (FreeStyle Barbra 3 Plus Sensor) deviceIndication s:Type 2 diabetes mellitus without complication, without long-term current use of insulin (CMS/[facility] V24, CMS/HCC V28) 1 EA 2 (two) times a day. Box = Kit = EA 2 each 6 05/16/20 25 Active amoxicillin (AMOXIL) 500 mg capsuleIndicatio ns:prevention of bacterial endocarditis Take 1 capsule (500 mg total) by mouth if needed (Dental procedues). Take 4 table 30-60 minutes prior to procedure. 4 each 4 05/16/20 25 Active tirzepatide, weight loss, (Zepbound) 10 mg/0.5 mL injection Inject 0.5 mL (10 mg total) under the skin every 7 (seven) days. 2 mL 1 05/19/20 25 Active colchicine (COLCRYS) 0.6 mg tablet TAKE 1 TABLET BY MOUTH EVERY DAY 90 tablet 1 06/08/20 25 Active buPROPion SR (WELLBUTRIN SR) 150 mg 12 hr tablet TAKE 1 TABLET BY MOUTH EVERY DAY 90 tablet 1 06/28/20 25 Active allopurinoL (ZYLOPRIM) 300 mg tablet TAKE 1 TABLET BY MOUTH EVERY DAY 90 tablet 1 06/28/20 25 Active losartan (COZAAR) 50 mg tablet TAKE 1 TABLET BY MOUTH EVERY DAY IN ADDITION TO 25MG FOR TOTAL DOSE OF 75MG DAILY 90 tablet 1 06/28/20 25 Active furosemide (LASIX) 40 mg tablet Take 40 mg by mouth once daily. 90 each 3 07/19/20 25 Active atorvastatin (LIPITOR) 20 mg tablet TAKE 1 TABLET BY MOUTH EVERY DAY 90 tablet 1 07/24/20 25 Active furosemide (LASIX) 40 mg tablet Take 40 mg by mouth once daily. 90 each 3 09/18/19 25 025 Discontinued(Re order) atorvastatin (LIPITOR) 20 mg tablet TAKE 1 TABLET BY MOUTH EVERY DAY 90 tablet 1 12/02/19 25 025 Discontinued Active Problems Problem Noted [...] per week. DM (diabetes mellitus), type 2 05/01/2020 Assessment & Plan (09/21/2024 5:07 PM [...] of ascending colon 01/25/2018 Severe obesity (BMI 35.0-39.9) with comorbidity 01/25/2018 Encounters Date Type Department Care Team Description 05/16/2025 1:15 PM EDT Office Visit Adult Medicine [address] [phone] Amanda Funk NP Toe infection (Primary Dx); SEFERINO (obstructive sleep apnea); Pulmonary nodules; Former smoker; Type 2 diabetes mellitus without complication, without long-term current use of insulin ([facility] V24, [facility] V28); Primary hypertension; Bilateral hip pain; Other dental procedure status; Ingrown nail; Need for tetanus, diphtheria, and acellular pertussis (Tdap) vaccine 05/16/2025 Telephone Adult Medicine [address] [phone] Amanda Funk NP 05/03/2025 Telephone Adult Medicine [address] [phone] Donnie Yanez MD from Last 3 Months Immunizations Immunization Administration Dates Next Due Influenza Quadravalent, MDCK , 0.5ml, preservative free (Flucelvax) 6mo and older 07/02/2022,07/14/2021 Influenza trivalent, 0.5mL (Fluad) 65yo and olde r 07/28/2023 Influenza trivalent, 0.5mL, preservative free (Fluarix; FluLaval; Fluzone) ages 6mo and older (Afluria) 3 years and older 05/09/2024,07/12/2019 Moderna (age 6mo & older) Bi valent, COVID-19, 0.5 mL or 0.25 mL dosage 05/25/2022 SARS-COV-2 (COVID-19) Vaccine, Unspecified 07/28 Td Tetanus diptheria, preser vative free (Tenivac) 7yo and older 05/16/2025 Tdap Tetanus diptheria acell ular pertussis (Boostrix; Adacel) 7yo and older 06/14/2015 Surgical History Surgery Date Site/Laterality Comments HERNIA REPAIR 07/04/2018 PROCEDURE: MI REPAIR FIRST ABDOMINAL WALL HERNIA; COMMENT: multiple incarcerated with mesh COLONOSCOPY 12/10/2015 PROCEDURE: HISTORICAL COLONOSCOPY OTHER SURGICAL HISTORY Right PROCEDURE: MI COLECTOMY PARTIAL W/ANASTOMOSIS; COMMENT: Hemicolectomy- Adenoma & adhesion KNEE SURGERY PROCEDURE: HISTORICAL KNEE SURGERY SHOULDER SURGERY Bilateral PROCEDURE: HISTORICAL SHOULDER SURGERY; COMMENT: [facility] APPENDECTOMY PROCEDURE: HISTORICAL APPENDECTOMY ELBOW SURGERY PROCEDURE: [...] obesi ty (BMI 35.0- 39.9) with comorbidity (HCC) CAD (coronary artery disease) 05/01/2020 DX :CAD (coronary artery disease) Hyperlipidemia 05/01/2020 DX:Hyperlipidemi a Prediabetes 05/01/2020 DX:Prediabetes Adenomatous polyp of ascending colon 01/25/2018 DX:Adenomatous polyp of ascending colon DM (diabetes mellitus), type 2 (CMS/HCC V24, CMS/HCC V28) 05/01/2020 DX:DM (diabetes mellitus), t ype 2 (HCC) HTN (hypertension) Family History Medical History Relation Name Comments [...] drink = 0.6 oz pur e alcohol) Housing Instability Answer Date Recorde d Are you worried that in the next 2 months you may not have stable housing? No 04/30/2025 Food Access & Nutrition Answer Date Rec orded Do you have access to a vari ety of food including fruits and vegetables? Yes 04/30/2025 Access to Healthcare Answer Date Record ed Within the last 3 months, ho w many times did you visit the emergency department for your medical care? 1 04/30/2025 Health Literacy Answer Date Recorded How often do you need to hav e someone help you when you read instructions, pamphlets, or other written material from your doctor or pharmacy? Never 04/30/2025 Caregiver: How often do you need to have someone help you when you read instructions, pamphlets, or other written material from your doctor or pharmacy? Not on file 04/30/2025 Financial Risk Answer Date Recorded How hard is it for you to pa y for the very basics like food, housing, medical care, and air conditioning / heating? Not very hard 04/30/2025 Transportation Answer Date Recorded Has the lack of transportati on kept you from meetings, work, or from getting things needed for daily living? No Has the lack of transportati on kept you from medical appointments or from getting medications? No 04/30/2025 Social Isolation Answer Date Recorded How often do you feel lonely or isolated from th ose around you? Never 04/30/2025 Food Risk Answer Date Recorded Within the past 12 months we worried whether our food would run out before we got money to buy more. Never true 04/30/2025 Within the past 12 months th e food we bought just didn't last and we didn't have money to get more. Never true 04/30/2025 Dependent Care Answer Date Recorded Do you need help finding or paying for care for your loved ones. For example, child welfare consultant or elderly care for an older adult? No 04/30/2025 Education Answer Date Recorded Do you think completing more education or training, like finishing a GED, going to college, or learning a trade, would be helpful for you? N/A 04/30/2025 Employment and Income Answer Date Recor ded During the last four weeks, have you been actively looking for work? No 04/30/2025 Living Situation Answer Date Recorded What is your living situation? Unrecognized valu e 04/30/2025 Sex and Gender Information Value Date Recorded Sex Assigned at Not on file Legal Sex Male 9:48 PM EST Gender Identity Not on file Sexual Orientation Not on file Last Filed Vital Signs Vital Sign Reading Time Taken Comments Blood Pressure 107/66 05/16/2025 1:13 PM EDT Pulse 62 05/16/2025 1:13 PM EDT Temperature 36.3 C (97.3 F) 05/16/2025 1:13 PM EDT Respiratory Rate 15 02/28/2025 11:06 PM EDT Oxygen Saturation 96% 05/16/2025 1:13 PM EDT Inhaled Oxygen Concentration - - Weight 111 kg (244 lb) 05/16/2025 1:13 PM EDT Height 182.9 cm (6') 05/16/2025 1:13 PM EDT Body Mass Index 33.09 05/16/2025 1:13 PM EDT Plan of Treatment Upcoming Encounters Date Type Department Care Team (Late st Contact Info) Description 08/22/2025 1:15 PM EST Office Visit Adult Medicine [facility] [address], [place] [phone] Amanda Funk NP [address], [place] Health Maintenance Due Date Last Done Comments Pneumococcal Vaccine: 50+ Years (1 of 2 - PCV) 1980 Zoster Vaccines (1 of 2) 1980 RSV Immunization Adult Patients (1 - Risk 50-74 years 1-dose series) 2011 HIV Screening 09/16/2019 COVID-19 Vaccine ( season) 2025 07/28/2023, 05/25/2022, 06/06/2021, Additional history exists Influenza Vaccine (#1) 2025 , 07/28/2023, 07/02/2022, Additional history exists Diabetes: Blood Sugar Control Test (HGBA1C) 10/07/2025 04/06/2025, 12/19/2024, 08/28/2024, Additional history exists Diabetes: Annual Foot Exam 12/19/2025 12/19/2024 Diabetes: Annual Retina Eye Exam 12/19/2025 12/19/2024, 06/08/2024 Diabetes: Annual Urine Albumin-Creatinine Ratio (uACR) 04/06/2026 04/06/2025, 12/03/2023 Diabetes: Annual GFR (Glomerular Filtration Rate) 04/06/2026 04/06/2025, 12/19/2024, 09/18/2024, Additional history exists Hypertension/CHF/CAD Annual BMP Blood Test 04/06/2026 04/06/2025, 12/19/2024, 09/18/2024, Additional history exists Social Influencers of Health Screening 04/30/2026 04/30/2025 Colorectal Cancer Screening: Colonoscopy 01/04/2029 01/05/2024 Cholesterol Screening (Lipid Panel) 04/06/2030 04/06/2025, 12/19/2024, 08/28/2024, Additional history exists DTaP,Tdap,and Td Vaccines (3 - Td or Tdap) 05/16/2035 05/16/2025, 06/14/2015 Hepatitis C Screening Completed 10/29/2022 Depression Screening Completed 04/30/2025 HIB Vaccines Aged Out No longer eligi [...] Procedure Name Priority Date/Time Associated Diagnosis Comments MICROALBUMIN CREATININE URINE RATIO Routine 04/06/2025 8:37 AM EDT Type 2 diabetes mellitus without complication, without long-term current use of insulin ([facility] V24, [facility] V28) COMPREHENSIVE METABOLIC PANEL Routine 04/06/2025 8:37 AM EDT Type 2 diabetes mellitus without complication, without long-term current use of insulin ([facility] V24, CMS/[facility] V28) HEMOGLOBIN A1C Routine 04/06/2025 8:37 AM EDT Type 2 diabetes mellitus without complication, without long-term current use of insulin ([facility] V24, [facility] V28) LIPID PANEL WITH REFLEX TO DIRECT LDL Routine 04/06/2025 8:37 AM EDT Type 2 diabetes mellitus without complication, without long-term current use of insulin ([facility] V24, [facility] V28) EXTERNAL DIABETIC RETINA EYE EXAM Routine 12/19/2024 10:10 AM EDT HM COLONOSCOPY Routine 01/05/2024 HEPATITIS C SCREENING Routine 10/29/2022 from Last 3 Months or Most Recently Relevant to Health Maintenance Results * (ABNORMAL) Lipid panel with reflex to direct LDL (04/06/2025 8:37 AM EDT) Cholesterol 134 0 - 200 mg/dL LAB CHEMISTRY METHOD 04/06/2025 11:[address] [facility] Triglycerides 236(H) 0 - 150 mg/dL LAB CHEMISTRY METHOD 04/06/2025 11:[address] [facility] HDL 48 >=40 mg/dL LAB CHEMISTRY METHOD 04/06/2025 11:[address] [facility] LDL Calculated 39 0 - 100 mg/dL LAB CHEMISTRY METHOD 04/06/2025 11:[address] [facility] Comment:Estimated LDL Calcul ated using equation: Total cholesterol - HDL cholesterol - (Triglycerides/5) VLDL Cholesterol [place] 47.2 mg/dL LAB CHEMISTRY METHOD 04/06/2025 11:[address] [facility] Non HDL Chol. (LDL+VLDL) 86 <145 mg/dL LAB CHEMISTRY METHOD 04/06/2025 11:[address] [facility] Chol/HDL Ratio 2.8 0.0 - 4.4 LAB CHEMISTRY METHOD 04/06/2025 11:[address] [facility] Blood Venous blood specimen / Unknown Venipuncture / Unknown 04/06/2025 8:37 AM EDT 04/06/2025 8:37 AM EDT [facility] BLOOD ORDERABLES Fin al Result Performing Organization Address [facility] Co de Phone Number [facility] [address] [place] [address], [place] [phone] * Microalbumin creatinine urine ratio (04/06/2025 8:37 AM EDT) Creatinine, Urine 27.0 mg/dL LAB CHEMISTRY METHOD 04/06/2025 11:13 AM EDT [facility] Microalb, Ur <5.0 0.0 - 29.0 mg/L LAB CHEMISTRY METHOD 04/06/2025 11:13 AM EDT [facility] Microalb/Creat Ratio <19 <30 mg/g creat LAB CHEMISTRY METHOD 04/06/2025 11:13 AM EDT [facility] Urine Urine specimen obtained by clean catch procedure / Unknown Non-blood Collection / Unknown 04/06/2025 8:37 AM EDT 04/06/2025 8:37 AM EDT [facility] URINE ORDERABLES Fin al Result Performing Organization Address [facility]/ZIP Co de Phone Number [facility] [address] [place] [address], [place] [phone] * Hemoglobin A1c (04/06/2025 8:37 AM EDT) Hemoglobin A1C 5.3 <6.5 % LAB CHEMISTRY METHOD 04/06/2025 1:36 PM EDT [facility] Mean Bld Glu Estim. 105 mg/dL LAB CHEMISTRY METHOD 04/06/2025 1:36 PM EDT [facility] Blood Venous blood specimen / Unknown Venipuncture / Unknown 04/06/2025 8:37 AM EDT 04/06/2025 8:37 AM EDT us [facility] BLOOD ORDERABLES Fin al Result [facility] [address] [place] [address], * Comprehensive metabolic panel (04/06/2025 8:37 AM EDT) [facility] Sodium 140 133 - 145 mmol/L LAB CHEMISTRY METHOD 04/06/2025 11:[address] [facility] Potassium 4.3 3.5 - 5.5 mmol/L LAB CHEMISTRY METHOD 04/06/2025 11:[address] [facility] Chloride 106 96 - 110 mmol/L LAB CHEMISTRY METHOD 04/06/2025 11:[address] [facility] CO2 27 21 - 32 mmol/L LAB CHEMISTRY METHOD 04/06/2025 11:[address] [facility] Anion Gap 7 3 - 11 LAB CHEMISTRY METHOD 04/06/2025 11:[address] [facility] Glucose 98 70 - 100 mg/dL LAB CHEMISTRY METHOD 04/06/2025 11:[address] [facility] BUN 23 5 - 25 mg/dL LAB CHEMISTRY METHOD 04/06/2025 11:[address] [facility] Creatinine 0.97 0.70 - 1.30 mg/dL LAB CHEMISTRY METHOD 04/06/2025 11:[address] [facility] eGFR 88 >=60 mL/min/1. 73m2 LAB CHEMISTRY METHOD 04/06/2025 11:[address] [facility] Comment:Calculation based on the Chronic Kidney Disease Epidemiology Collaboration (CKD-EPI) equation refit without adjustment for race. BUN/Creatinine Ratio 23.7 LAB CHEMISTRY METHOD 04/06/2025 11:[address] [facility] Calcium 9.5 8.5 - 10.5 mg/dL LAB CHEMISTRY METHOD 04/06/2025 11:[address] [facility] AST (SGOT) 20 10 - 42 unit/L LAB CHEMISTRY METHOD 04/06/2025 11:[address] [facility] ALT (SGPT) 25 10 - 60 unit/L LAB CHEMISTRY METHOD 04/06/2025 11:[address] [facility] Alkaline Phosphatase 97 42 - 121 unit/L LAB CHEMISTRY METHOD 04/06/2025 11:[address] [facility] Total Protein 6.9 6.0 - 8.0 g/dL LAB CHEMISTRY METHOD 04/06/2025 11:[address] [facility] Albumin 4.1 3.2 - 5.0 g/dL LAB CHEMISTRY METHOD 04/06/2025 11:[address] [facility] Total Bilirubin 0.5 0.0 - 1.4 mg/dL LAB CHEMISTRY METHOD 04/06/2025 11:[address] [facility] Blood Venous blood specimen / Unknown Venipuncture / Unknown 04/06/2025 8:37 AM EDT 04/06/2025 8:37 AM EDT [facility] BLOOD ORDERABLES Fin al Result [facility] [address] [place] [id number], * External Diabetic Retina Eye Exam Report (12/19/2024 10:10 AM EDT) Anatomical Region Laterality Modality Ultrasound [facility] US PROCEDURES Final Result * Colonoscopy (01/05/2024) Colonoscopy No interpretation , abstracted Anatomical Region Laterality Modality Other Historical Provider HEALTH MAINTENANCE Final Result * Hepatitis C Screening (10/29/2022) Hepatitis C Screening Abstracted Historical Provider HEALTH MAINTENANCE Final Result from Last 3 Months or Most Recently Relevant to Health Maintenance Insurance [employer] Care Teams Director [employer] Relationship Specialty Start Date End Date Donnie Yanez MD [address] [place] [phone] PCP - General Internal Medicine 07/14/21
== END 2025-07-31 10:17 | disposition home or self-care (01) ==
PROVIDERS: PCP Internal Medicine; Visit Provider Nurse Practitioner Family
DX: G47.33 Obstructive sleep apnea (adult) (pediatric) (principal); E66.01 Morbid (severe) obesity due to excess calories; R91.1 Solitary pulmonary nodule; Z77.29 Contact with and (suspected) exposure to other hazardous substances; Z77.090 Contact with and (suspected) exposure to asbestos
CPT/HCPCS: 99214